=== PATIENT | female | born 1985 | race Native Hawaiian/Other Pacific Islander ===

== ENCOUNTER 2016-10-26 07:43 | Emergency (ER) | payer OTHER ==
[~2016-10-26] VITALS: Ht 162.6 cm; Wt 66.3 kg
[2016-10-26 08:48] VITALS: BP 146/83
== END 2016-10-26 08:48 | disposition home or self-care (01) ==
LOC: ED 07:43
DX: S61.411A Laceration without foreign body of right hand, initial encounter (principal); Y99.8 Other external cause status; X58.XXXA Exposure to other specified factors, initial encounter; Y93.89 Activity, other specified; Y92.89 Other specified places as the place of occurrence of the external cause
CPT/HCPCS: 90715; J2001

== ENCOUNTER 2016-10-28 12:24 | Emergency (ER) | payer OTHER ==
[2016-10-28 12:38] VITALS: BP 124/80
== END 2016-10-28 13:05 | disposition home or self-care (01) ==
LOC: ED 12:24
DX: S61.411D Laceration without foreign body of right hand, subsequent encounter (principal); X58.XXXD Exposure to other specified factors, subsequent encounter; Y99.8 Other external cause status; Y92.89 Other specified places as the place of occurrence of the external cause

== ENCOUNTER 2019-11-29 07:49 | Emergency (ER) | payer OTHER ==
[~2019-11-29] VITALS: Ht 162.6 cm; Wt 66.2 kg
[2019-11-29 07:56] VITALS: Ht 162.6 cm; Wt 66.2 kg
[2019-11-29 08:35] LABS: microscopic required? NO
[2019-11-29 08:48] LABS: BASOPHIL % 0.4 % (0-2); CARBON DIOXIDE 25.2 mmol/L (21-32); CHLORIDE SERUM 102 mmol/L (98-107); CREATININE SERUM 0.8 mg/dL (0.6-1.0); GFR1 > 60 mL/min; GLUCOSE SERUM 125 mg/dL (74-106); PLATELET COUNT 226 x10^3mcL (130-400); POTASSIUM SERUM 3.5 mmol/L (3.5-5.1); RED CELL DISTRIBUTION WIDTH 13.3 % (11.5-14.5); SODIUM SERUM 138 mmol/L (136-145)
[2019-11-29 08:53] LABS: ALBUMIN 3.9 g/dL (3.4-5.0); ALKALINE PHOSPHATASE 45 U/L (46-116); ALT/SGPT 20 U/L (14-59); AST/SGOT 16 U/L (15-37); BILIRUBIN TOTAL 0.91 mg/dL (0.20-1.00); LIPASE 77 IU/L (73-393); TOTAL PROTEIN, SERUM 7.7 g/dL (6.4-8.2)
[2019-11-29 09:13] LABS: UA SPECIFIC GRAVITY 1.015 (1.005-1.035); urine erythrocyte NEGATIVE (NEGATIVE)
[2019-11-29 09:59] VITALS: BP 132/80
== END 2019-11-29 09:59 | disposition home or self-care (01) ==
LOC: ED 07:49
PROVIDERS: Emergency Medicine
DX: K80.20 Calculus of gallbladder without cholecystitis without obstruction (principal)
CPT/HCPCS: Q0092

== ENCOUNTER 2019-12-10 04:25 | Inpatient (IN) | payer OTHER ==
[~2019-12-10] VITALS: Ht 162.6 cm; Wt 61.2 kg
[2019-12-10 04:28] VITALS: Ht 162.6 cm; Wt 61.2 kg
[2019-12-10 05:33] LABS: BASOPHIL % 0.7 % (0-2); PLATELET COUNT 243 x10^3mcL (130-400); RED CELL DISTRIBUTION WIDTH 13.3 % (11.5-14.5)
[2019-12-10 05:36] LABS: CALCIUM 8.5 mg/dL (8.5-10.1); CARBON DIOXIDE 19.5 mmol/L (21-32); CREATININE SERUM 1.3 mg/dL (0.6-1.0); POTASSIUM SERUM 3.4 mmol/L (3.5-5.1)
[2019-12-10 05:40] LABS: ALBUMIN 3.7 g/dL (3.4-5.0); BILIRUBIN TOTAL 0.77 mg/dL (0.20-1.00); TOTAL PROTEIN, SERUM 7.1 g/dL (6.4-8.2)
[2019-12-10 05:54] LABS: FREE T4 1.67 ng/dL (0.76-1.46); T4(THYROXINE) 7.4 ug/dL (4.7-13.3)
[2019-12-10 06:17] LABS: T3 TOTAL 0.94 ng/mL
[2019-12-10] MEDS ORDERED: ACID REDUCER20 MG PO (06:42)
[2019-12-10] MEDS ORDERED: AZASAN75 MG PO (06:44)
[2019-12-10 07:40] LABS: microscopic required? YES; urine erythrocyte TRACE (NEGATIVE)
[2019-12-10 07:41] LABS: AMPHETAMINE QUAL UR NONE DETECTED (See below)
[2019-12-10 07:45] LABS: CHOLESTEROL/HDL RATIO 3.9; MAGNESIUM 1.6 mg/dL (1.8-2.4); PHOSPHOROUS 3.4 mg/dL (2.5-4.9)
[2019-12-10] MEDS ORDERED: ULTRAM50 MG (07:56)
[2019-12-10 08:26] VITALS: BP 123/72
[2019-12-10 10:08] VITALS: BP 127/92
[2019-12-10 13:00] VITALS: BP 109/76
[2019-12-10 15:41] LABS: FREE T4 1.61 ng/dL (0.76-1.46); FREE THYROXINE INDEX 3.1 ug/dL (1.4-4.5)
[2019-12-10 15:44] LABS: T3 TOTAL 0.9 ng/mL
[2019-12-10 17:50] VITALS: BP 100/72
[2019-12-10 20:28] VITALS: BP 106/65
[2019-12-11 05:56] VITALS: BP 101/68
[2019-12-11 06:40] LABS: BASOPHIL % 0.2 % (0-2); PLATELET COUNT 171 x10^3mcL (130-400); RED CELL DISTRIBUTION WIDTH 12.4 % (11.5-14.5)
[2019-12-11 07:09] LABS: CALCIUM 8.4 mg/dL (8.5-10.1); CHLORIDE SERUM 105 mmol/L (98-107); CREATININE SERUM 0.7 mg/dL (0.6-1.0); GFR1 > 60 mL/min; GLUCOSE SERUM 97 mg/dL (74-106); PHOSPHOROUS 2.7 mg/dL (2.5-4.9); POTASSIUM SERUM 3.7 mmol/L (3.5-5.1); SODIUM SERUM 138 mmol/L (136-145)
[2019-12-11 08:12] VITALS: BP 112/74
[2019-12-11 11:58] VITALS: BP 106/70
[2019-12-11 12:40] VITALS: BP 122/86
[2019-12-11 13:56] VITALS: BP 98/64
[2019-12-11] MEDS ORDERED: IND20 PO (14:31)
[2019-12-11] MEDS ORDERED: TAP5 PO (14:32)
[2019-12-11 16:06] VITALS: BP 95/63
[2019-12-12 09:08] LABS: THYROGLOBULIN ANTIBODY < 1.0 IU/mL (0.0-0.9)
== END 2019-12-11 17:08 | disposition home or self-care (01) | DRG 427 ==
LOC: ED 04:25 → DU 06:19
PROVIDERS: Emergency Medicine; ADMIT Family Medicine; ATTEND Family Medicine
DX: E05.90 Thyrotoxicosis, unspecified without thyrotoxic crisis or storm (principal); E83.42 Hypomagnesemia; K75.4 Autoimmune hepatitis; I47.1 Supraventricular tachycardia; E87.6 Hypokalemia; F41.9 Anxiety disorder, unspecified; I71.9 Aortic aneurysm of unspecified site, without rupture; F32.9 Major depressive disorder, single episode, unspecified; G47.00 Insomnia, unspecified; G43.909 Migraine, unspecified, not intractable, without status migrainosus; Z82.49 Family history of ischemic heart disease and other diseases of the circulatory system; Z87.891 Personal history of nicotine dependence
CPT/HCPCS: 84439; 86376; G0378; J0153; J2930; J3475; J3490; J7030; J7500; Q0092

== ENCOUNTER 2019-12-12 12:50 | Emergency (ER) | payer OTHER ==
[~2019-12-12] VITALS: Ht 162.6 cm; Wt 61.2 kg
[~2019-12-12 12:50] MED LIST: ACID REDUCER20 MG PO; AZASAN75 MG PO; IND20 PO; TAP5 PO; ULTRAM50 MG
[2019-12-12 12:53] VITALS: Ht 162.6 cm; Wt 61.2 kg
[2019-12-12 13:51] LABS: BASOPHIL % 0.5 % (0-2); PLATELET COUNT 203 x10^3mcL (130-400); RED CELL DISTRIBUTION WIDTH 13.5 % (11.5-14.5)
[2019-12-12 14:10] LABS: CALCIUM 8.8 mg/dL (8.5-10.1); CARBON DIOXIDE 29.6 mmol/L (21-32); CHLORIDE SERUM 103 mmol/L (98-107); CREATININE SERUM 0.8 mg/dL (0.6-1.0); GFR1 > 60 mL/min; GLUCOSE SERUM 126 mg/dL (74-106); SODIUM SERUM 140 mmol/L (136-145)
[2019-12-12 14:10] LABS: microscopic required? NO
[2019-12-12 14:15] LABS: ALBUMIN 3.6 g/dL (3.4-5.0); ALKALINE PHOSPHATASE 39 U/L (46-116); ALT/SGPT 18 U/L (14-59); AST/SGOT 21 U/L (15-37); BILIRUBIN TOTAL 0.5 mg/dL (0.20-1.00); C REACTIVE PROTEIN 0.3 mg/dL (<=0.9); LACTIC DEHYDROGENASE (LDH) 129 U/L (100-190)
[2019-12-12 14:27] LABS: urine erythrocyte NEGATIVE (NEGATIVE)
[2019-12-12 14:28] LABS: TOTAL PROTEIN, SERUM 3.8 g/dL (6.4-8.2)
[2019-12-12 14:43] LABS: T3 TOTAL 0.83 ng/mL
[2019-12-12 15:07] LABS: FREE T4 1.23 ng/dL (0.76-1.46); FREE THYROXINE INDEX 2.4 ug/dL (1.4-4.5); T4(THYROXINE) 6.5 ug/dL (4.7-13.3)
[2019-12-12 18:24] VITALS: BP 102/80
== END 2019-12-12 18:24 | disposition home or self-care (01) ==
LOC: ED 12:50
PROVIDERS: Specialist
DX: R06.02 Shortness of breath (principal); R07.89 Other chest pain; R42 Dizziness and giddiness; Z20.828 Contact with and (suspected) exposure to other viral communicable diseases
CPT/HCPCS: 36600; 83880; 84439; 87804; Q0092; Q9967; U0003-CS

== ENCOUNTER 2019-12-13 09:25 | Emergency (ER) | payer OTHER ==
[~2019-12-13] VITALS: Ht 162.6 cm; Wt 59.9 kg
[2019-12-13 09:31] VITALS: Ht 162.6 cm; Wt 59.9 kg
[2019-12-13 12:25] VITALS: BP 109/86
== END 2019-12-13 12:25 | disposition home or self-care (01) ==
LOC: ED 09:25
DX: F41.9 Anxiety disorder, unspecified (principal); R06.00 Dyspnea, unspecified; E03.9 Hypothyroidism, unspecified

== ENCOUNTER 2020-02-11 19:06 | Emergency (ER) | payer OTHER ==
[~2020-02-11] VITALS: Ht 162.6 cm; Wt 63.5 kg
[2020-02-11 19:11] VITALS: Ht 162.6 cm; Wt 63.5 kg
[2020-02-11 23:30] LABS: CALCIUM 8.8 mg/dL (8.5-10.1); CARBON DIOXIDE 23.2 mmol/L (21-32); CHLORIDE SERUM 104 mmol/L (98-107); CREATININE SERUM 0.7 mg/dL (0.6-1.0); GFR1 > 60 mL/min; GLUCOSE SERUM 112 mg/dL (74-106); SODIUM SERUM 137 mmol/L (136-145)
[2020-02-11 23:34] LABS: ALBUMIN 3.6 g/dL (3.4-5.0); ALKALINE PHOSPHATASE 50 U/L (46-116); ALT/SGPT 20 U/L (14-59); AST/SGOT 17 U/L (15-37); BILIRUBIN TOTAL 0.28 mg/dL (0.20-1.00); TOTAL PROTEIN, SERUM 7.5 g/dL (6.4-8.2)
[2020-02-12 01:21] VITALS: BP 115/74
[2020-02-16 16:21] LABS: PLATELET COUNT 215 x10^3mcL (130-400); RED CELL DISTRIBUTION WIDTH 14.5 % (11.5-14.5)
[2020-02-16 16:24] LABS: BASOPHIL % 0.3 % (0-2)
== END 2020-02-12 01:21 | disposition home or self-care (01) ==
LOC: ED 19:06
PROVIDERS: Emergency Medicine
DX: R07.89 Other chest pain (principal); E05.90 Thyrotoxicosis, unspecified without thyrotoxic crisis or storm
CPT/HCPCS: Q0092